=== PATIENT | male | born 1995 | race Asian ===

== ENCOUNTER 2018-05-24 14:34 | Outpatient (CLI) | payer OTHER | END 2018-05-24 14:36 | disposition short-term general hospital (02) | LOC: AMB 14:34 | DX: R07.89 Other chest pain (principal); V49.9XXA Car occupant (driver) (passenger) injured in unspecified traffic accident, initial encounter; Y93.89 Activity, other specified; Y92.89 Other specified places as the place of occurrence of the external cause | CPT/HCPCS: A0425; A0429 ==

== ENCOUNTER 2018-05-24 14:37 | Emergency (ER) | payer OTHER ==
[~2018-05-24] VITALS: Ht 208.3 cm; Wt 83.9 kg
[2018-05-24 14:37] VITALS: TEMP 97.3
[2018-05-24 15:22] LABS: PLATELET COUNT 625 K/uL (142-355)
[2018-05-24 15:40] LABS: POTASSIUM 3.9 mmol/L (3.6-5.2)
[2018-05-24 18:13] VITALS: BP 105/55
== END 2018-05-24 18:14 | disposition home or self-care (01) ==
LOC: EDBD 14:38 → ED 14:38
DX: S20.212A Contusion of left front wall of thorax, initial encounter (principal); S20.211A Contusion of right front wall of thorax, initial encounter; V49.40XA Driver injured in collision with unspecified motor vehicles in traffic accident, initial encounter
CPT/HCPCS: 80053; 80307; 81000; 85027; 99283